=== PATIENT | female | born 1975 | race Caucasian/White ===

== ENCOUNTER 2021-05-08 14:36 | Outpatient (REF) | payer BC, SELFPAY ==
[2021-05-08 14:52] LABS: Anion Gap 9.2 mmol/L (3-11); BUN 13 mg/dL (7-18); CO2 25.8 mmol/L (21.0-32.0); CREATININE 0.8 mg/dL (0.55-1.02); Calcium 8.8 mg/dL (8.5-10.1); Calculated LDL 164 mg/dL (<100); Chloride 104 mmol/L (98-107); Cholesterol 249 mg/dL (<200); Glucose 92 mg/dL (74-106); HDL Cholesterol 57 mg/dL (40-60); Potassium 4.1 mmol/L (3.5-5.1); Sodium 139 mmol/L (136-145); Triglyceride 141 mg/dL (<150)
== END 2021-05-08 14:37 | disposition home or self-care (01) ==
LOC: NCHCN 14:36
PROVIDERS: Visit Provider Nurse Practitioner Family
DX: Z00.00 Encounter for general adult medical examination without abnormal findings (principal)
CPT/HCPCS: 80048; 80061

== ENCOUNTER 2021-08-07 16:41 | Outpatient (REF) | payer BC, SELFPAY ==
--- NOTE | 2021-08-07 13:30 | PAPFT_PTH ---
PATIENT: Tameka Boyer LOC: [facility]#:[id number] AGE/SX: 45/F ROOM: RE08/07/[address]: Tara Brunson : 1975 BED: DIS: 08/07/2021 SPEC #: [id number] RECD: 08/08/21 12:49 STATUS: DON RERuth #: [id number] SAGRARIO: 08/07/21 13:[address]: Tara Brunson DEPT: [facility] Cytology RECD BY: Brenda Torres Tissues: 1 - CX/ENDOCX FOR PAP SMEARS Procedures: PAP THIN PREP/[facility] Screening HPV DNA PROBE Comments: [id number] (CHLAMYDIA/GC)
[2021-08-09 15:00] LABS: Chlamydia Result Negative (Negative); GC Result Negative (Negative)
== END 2021-08-07 16:42 | disposition home or self-care (01) ==
LOC: NCHCN 16:41
PROVIDERS: Visit Provider Nurse Practitioner Family
DX: Z12.4 Encounter for screening for malignant neoplasm of cervix (principal); Z01.419 Encounter for gynecological examination (general) (routine) without abnormal findings; Z11.3 Encounter for screening for infections with a predominantly sexual mode of transmission; Z11.51 Encounter for screening for human papillomavirus (HPV)
CPT/HCPCS: 87491; 87591; 88142; 87624

== ENCOUNTER 2022-08-09 21:12 | Outpatient (REF) | payer BC, SELFPAY ==
[2022-08-09 21:56] LABS: ALT 23 U/L (14-59); AST 24 U/L (15-37); Alkaline Phosphatase 53 U/L (46-116); Anion Gap 8.1 mmol/L (3-11); BUN 15 mg/dL (7-18); Bilirubin, Total 0.4 mg/dL (0.2-1.0); CO2 26.9 mmol/L (21.0-32.0); CREATININE 0.9 mg/dL (0.55-1.02); Calcium 9.1 mg/dL (8.5-10.1); Calculated LDL 154 mg/dL (<100); Chloride 102 mmol/L (98-107); Cholesterol 235 mg/dL (<200); Estimated GFR 79.85 (mL/min/1.73m2); Glucose 86 mg/dL (74-106); HDL Cholesterol 60 mg/dL (40-60); Potassium 3.9 mmol/L (3.5-5.1); Sodium 137 mmol/L (136-145); Total Protein 7.7 g/dL (6.4-8.2); Triglyceride 107 mg/dL (<150)
== END 2022-08-09 21:13 | disposition home or self-care (01) ==
LOC: NCHCN 21:12
PROVIDERS: Visit Provider Nurse Practitioner Family
DX: Z00.00 Encounter for general adult medical examination without abnormal findings (principal); E78.5 Hyperlipidemia, unspecified
CPT/HCPCS: 80053; 80061